=== PATIENT | female | born 1980 ===

== ENCOUNTER 2020-12-03 11:45 | Outpatient (REF) | payer SELFPAY ==
--- NOTE | ~2020-12-03 | XR_ITS ---
EXAMINATION: XR HAND, LEFT CLINICAL INFORMATION: Fall COMPARISON: None TECHNIQUE: PA, lateral, and oblique views of the left hand. FINDINGS: The bones and soft tissues are normal. No fracture. Alignment is anatomic. Joint spaces are maintained. No erosions or soft tissue calcifications. XR/XR hand wrist LT IMPRESSION: Normal left hand.
--- NOTE | ~2020-12-03 | XR_ITS ---
EXAMINATION: XR ELBOW, LEFT CLINICAL INFORMATION: Fall COMPARISON: None TECHNIQUE: AP, lateral, and oblique views of the left elbow. FINDINGS: The bones and soft tissues are normal. No fracture or joint effusion. Alignment is anatomic. Joint spaces are maintained. XR/XR elbow LT min 3V IMPRESSION: Normal left elbow.
== END 2020-12-03 11:46 | disposition home or self-care (01) ==
LOC: HO.HMGCX 11:45
PROVIDERS: PCP Internal Medicine; Visit Provider Physician Assistant Medical
DX: Z91.81 History of falling (principal)
CPT/HCPCS: 73080; 73110; 73130

== ENCOUNTER 2020-12-20 18:30 | Outpatient (REF) | payer BC, SELFPAY ==
--- NOTE | ~2020-12-20 | MR_ITS ---
EXAMINATION: MRI WRIST WITHOUT CONTRAST, LEFT CLINICAL INFORMATION: Left wrist/forearm pain following a fall on 12/02/2020. COMPARISON: Left hand and wrist radiographs dated 12/03/2020. TECHNIQUE: Multisequence MR imaging of the left wrist was performed without contrast on a high-field strength scanner. FINDINGS: TRIANGULAR FIBROCARTILAGE: Intact. INTRINSIC LIGAMENTS: Intact. TENDONS/MEDIAN NERVE: Trace fluid within the extensor carpi radialis longus and extensor carpi radialis brevis tendon sheaths as well as within the abductor pollicis longus and extensor pollicis brevis tendon sheaths. Findings are consistent with minimal tenosynovitis. No transverse tendon defect. ARTICULAR CARTILAGE/BONE: Diffuse articular cartilage signal heterogeneity with areas of full-thickness loss and mild underlying subchondral cystic change at the triscaphe and 1st carpometacarpal joints. Small marginal osteophytes. JOINT FLUID/SOFT TISSUES: Small pisotriquetral joint effusion. MR/MR wrist LT wo con IMPRESSION: 1. Minimal tenosynovitis of the extensor carpi radialis longus, extensor carpi radialis brevis, abductor pollicis longus, and extensor pollicis brevis tendons. No transverse tendon defect. 2. 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 Small pisotriquetral joint effusion. 3. No triangular fibrocartilage complex or intrinsic ligament tear.
== END 2020-12-20 18:31 | disposition home or self-care (01) ==
LOC: HO.MRI 18:30
PROVIDERS: PCP Internal Medicine; Visit Provider Internal Medicine
DX: S69.92XA Unspecified injury of left wrist, hand and finger(s), initial encounter (principal); X58.XXXA Exposure to other specified factors, initial encounter; Y93.9 Activity, unspecified; Y92.9 Unspecified place or not applicable; Y99.9 Unspecified external cause status
CPT/HCPCS: 73221

== ENCOUNTER 2022-01-18 12:18 | Outpatient (REF) | payer OTHER, SELFPAY ==
[2022-01-18 12:56] LABS: Hematocrit 34.8 % (37.0-47.0); Hemoglobin 11.3 g/dl (12.0-16.0); Mean Corpuscular HGB Conc 32.5 g/dl (31.0-35.0); Mean Corpuscular Hemoglobin 26.6 pg (27.0-33.0); Mean Corpuscular Volume 81.9 fL (80.0-98.0); Mean Platelet Volume 9.5 fL (9.4-12.3); Platelet Count 472 X10*3/uL (160-400); Red Blood Count 4.25 X10*6/uL (4.20-5.50); Red Cell Distribution Width 16.5 % (11.0-16.0); White Blood Count 12.9 X10*3/uL (4.8-10.8)
[2022-01-18 13:46] LABS: Alanine Aminotransferase 21 U/L (0-31); Albumin Level 4.4 g/dL (3.5-5.0); Alkaline Phosphatase 96 U/L (39-117); Anion Gap 16 (12-20); Aspartate Amino Transferase 20 U/L (5-31); Blood Urea Nitrogen 10 mg/dL (9-16); Calcium 9.4 mg/dL (8.4-10.2); Carbon Dioxide 26 mmol/L (22-29); Chloride 101 mmol/L (96-108); Cholesterol 183 mg/dL; Estimated Glomerular Filt Rate > 60; Glucose Fasting 96 mg/dL (60-99); HDL Cholesterol 59 mg/dL; LDL Cholesterol Calculated 96 mg/dl; Potassium 4.7 mmol/L (3.3-5.1); Sodium 138 mmol/L (135-145); Total Protein 7.2 g/dL (6.5-8.0); Triglycerides 141 mg/dL
[2022-01-18 13:52] LABS: Appearance Urine Turbid; Color Urine Yellow; Glucose Urine UA Negative (Negative); Leukocyte Esterase Urine Large (3+) (Negative); Nitrite Urine Negative (Negative); PH 5.5 (5.0-8.0); Specific Gravity - Urine 1.025 (1.005-1.025); Urine Blood Small (1+) (Negative); Urine Ketones Trace mg/dL (Negative); Urine Protein 100 (2+) mg/dL (Neg-Trace)
[2022-01-18 14:02] LABS: Bilirubin Total < 0.2 mg/dL (0.0-1.0)
[2022-01-18 14:17] LABS: Bacteria Urine 4+ (None Seen); Squamous Epithelial Cell Urine >20 /HPF (0-2); UACC Culture Trigger YES; WBC Urine >50 /HPF (0-5)
== END 2022-01-18 12:19 | disposition home or self-care (01) ==
LOC: HO.LAB 12:18
PROVIDERS: PCP Internal Medicine; Visit Provider Internal Medicine
DX: Z00.00 Encounter for general adult medical examination without abnormal findings (principal)
CPT/HCPCS: 36415; 80053; 80061; 81001; 85027

== ENCOUNTER 2022-01-24 12:47 | Outpatient (REF) | payer OTHER, SELFPAY ==
[2022-01-24 13:38] LABS: Appearance Urine Cloudy; Color Urine Yellow; Glucose Urine UA Negative (Negative); Leukocyte Esterase Urine Moderate (2+) (Negative); Nitrite Urine Negative (Negative); PH 5.5 (5.0-8.0); Specific Gravity - Urine >= 1.030 (1.005-1.025); Urine Blood Negative (Negative); Urine Ketones Negative (Negative); Urine Protein 100 (2+) mg/dL (Neg-Trace)
[2022-01-24 14:08] LABS: Iron 41 mcg/dL (30-160); Percent Iron Saturation 9 % (15-50); Total Iron Binding Capacity 475 mcg/dL (228-428); Unsaturated Iron Binding 434 ug/dL
[2022-01-24 14:09] LABS: UACC Culture Trigger YES
[2022-01-24 14:11] LABS: Bacteria Urine None Seen (None Seen)
[2022-01-24 14:42] LABS: Folate 7.4 ng/mL (> or = 4.0); Vitamin B12 314 pg/mL (200-900)
== END 2022-01-24 12:48 | disposition home or self-care (01) ==
LOC: HO.LAB 12:47
PROVIDERS: PCP Internal Medicine; Visit Provider Internal Medicine
DX: R82.71 Bacteriuria (principal); D64.9 Anemia, unspecified
CPT/HCPCS: 36415; 81001; 82607; 82746; 83540

== ENCOUNTER 2022-01-29 08:08 | Outpatient (REF) | payer OTHER, SELFPAY ==
[2022-01-29 12:10] LABS: Total Volume 24 Hour Urine 1450 mL
[2022-01-29 12:12] LABS: Creatinine, 24Hr Urine 1.2 G/Day (1.0-2.0); Creatinine, mg/dL 84.15; Protein 24 Hr Urine 203 mg/Day (<150); Protein mg/dL 14 mg/dL
[2022-01-31 20:32] LABS: Urea, 24 Hr Urine 11 g/24 h (6-17)
== END 2022-01-29 08:09 | disposition home or self-care (01) ==
LOC: HO.HMGCLDS 08:08
PROVIDERS: PCP Internal Medicine; Visit Provider Internal Medicine
DX: R80.9 Proteinuria, unspecified (principal)
CPT/HCPCS: 84156; 84540

== ENCOUNTER 2022-03-15 15:27 | Outpatient (REF) | payer OTHER, SELFPAY ==
--- NOTE | ~2022-03-15 | US_ITS ---
EXAMINATION: US THYROID CLINICAL INFORMATION: Nontoxic goiter, unspecified. COMPARISON: None TECHNIQUE: Linear transducer sanchez-scale and color Doppler examination with attention to the region of the thyroid. FINDINGS: SIZE: Measurements of the thyroid lobes and nodules are given in sagittal, anteroposterior and transverse dimensions respectively. Right Thyroid Lobe: 4.8 x 1.5 x 1.4 cm, volume 5.1 mL. Parenchyma: The gland echotexture is homogeneous. Thyroid vascularity is normal. Left Thyroid Lobe: 3.8 x 1.3 x 1.5 cm, volume 3.7 mL. Parenchyma: The gland echotexture is homogeneous. Thyroid vascularity is increased. Isthmus: 0.2 cm in maximum AP dimension. Estimated total number of nodules greater than or equal to 1 cm: 0. Business Data Analyst nodules are described as follows: 1. Location: Left medial inferior. Size: 0.4 x 0.2 x 0.3 cm, volume 0.01 mL. Nodule characteristics: Composition: Solid (2). Echogenicity: Hypoechoic (2). Shape: Not taller than wide (0). Margins: Smooth (0). Echogenic Foci: None (0). ACR TI-RADS total points: 4 ACR TI-RADS category: 4 NODES: No lymphadenopathy is seen in the tissue surrounding the thyroid gland. US/US thyroid IMPRESSION: Solitary subcentimeter nonsuspicious nodule lower pole left thyroid lobe. The left lobe is slightly hypervascular. Unremarkable right thyroid lobe. Routine annual followup can be performed. ACR TI-RADS RECOMMENDATION REFERENCE: Ultrasound-guided fine-needle aspiration, followup ultrasound, no further follow up. * TR1 (0 point) and TR 2 (2 points): No FNA or follow up. * TR3 (3 points): FNA if more than or equal to 2.5 cm in maximum dimension, followup ultrasound in 1, 3 and 5 years if 1.5 to 2.4 cm in maximum dimension. * TR4 (4-6 points): FNA if more than or equal to 1.5 cm in maximum dimension, followup ultrasound in 1, 2, 3 and 5 years if 1 to 1.4 cm in maximum dimension. * TR5 (more than or equal to 7 points): FNA if more than or equal to 1 cm in maximum dimension, followup ultrasound every year for 5 years if 0.5 to 0.9 cm in maximum dimension. * TR3, TR4 or TR5 nodules that are below the size threshold for followup receive no follow up.
== END 2022-03-15 15:28 | disposition home or self-care (01) ==
LOC: HO.US 15:27
PROVIDERS: Visit Provider Internal Medicine
DX: E04.9 Nontoxic goiter, unspecified (principal)
CPT/HCPCS: 76536

== ENCOUNTER 2022-10-16 12:48 | Outpatient (REF) | payer OTHER, SELFPAY ==
[2022-10-16 13:10] LABS: MANUAL DIFF FLAG NO
[2022-10-16 14:22] LABS: Appearance Urine Cloudy; Color Urine Yellow; Glucose Urine UA Negative (Negative); Leukocyte Esterase Urine Trace (Negative); Nitrite Urine Negative (Negative); PH 6.5 (5.0-9.0); Specific Gravity - Urine 1.025 (1.005-1.025); UMIC TRIGGER UA YES; Urine Blood Negative (Negative); Urine Ketones Negative (Negative); Urine Protein Trace mg/dL (Neg-Trace)
[2022-10-16 14:25] LABS: Bacteria Urine None Seen (None Seen); Hyaline Casts Urine 0-2 /LPF (0-2); RBC Urine 0-2 /HPF (0-2); WBC Urine 0-5 /HPF (0-5)
[2022-10-16 14:30] LABS: Basophils Absolute Auto 0.1 X10*3/uL (0.0-0.2); Basophils Percent Auto 0.9 % (0-2); Eosinophils Absolute Auto 0.6 X10*3/uL (0.0-0.4); Eosinophils Percent Auto 5.1 % (0-4); Hematocrit 37.4 % (37.0-47.0); Hemoglobin 12.3 g/dl (12.0-16.0); Imm Gran Abs Auto 0.03 X10*3/uL (0.00-0.03); Imm Gran Pct Auto 0.3 % (0.0-0.4); Lymphocytes Absolute Auto 3.5 X10*3/uL (1.2-4.9); Lymphocytes Percent Auto 31.7 % (20-40); Mean Corpuscular HGB Conc 32.9 g/dl (31.0-35.0); Mean Corpuscular Hemoglobin 28.5 pg (27.0-33.0); Mean Corpuscular Volume 86.8 fL (80.0-98.0); Mean Platelet Volume 10.1 fL (9.4-12.3); Monocytes Absolute Auto 0.7 X10*3/uL (0.1-1.2); Monocytes Percent Auto 6.2 % (2-11); Neutrophils Absolute Auto 6.2 x10*3/uL (2.0-8.3); Neutrophils Percent Auto 55.8 % (45-73); Platelet Count 439 X10*3/uL (160-400); Red Blood Count 4.31 X10*6/uL (4.20-5.50); Red Cell Distribution Width 13.6 % (11.0-16.0); White Blood Count 11.1 X10*3/uL (4.8-10.8)
[2022-10-16 16:36] LABS: Anion Gap 16 (12-20)
[2022-10-16 17:11] LABS: Blood Urea Nitrogen 16 mg/dL (9-16); Calcium 9.5 mg/dL (8.4-10.2); Carbon Dioxide 25 mmol/L (22-29); Chloride 101 mmol/L (96-108); Estimated Glomerular Filt Rate > 60; Iron 61 mcg/dL (30-160); Percent Iron Saturation 20 % (15-50); Potassium 4.6 mmol/L (3.3-5.1); Sodium 137 mmol/L (135-145); Total Iron Binding Capacity 311 mcg/dL (228-428); Unsaturated Iron Binding 250 ug/dL
[2022-10-16 17:13] LABS: Creatinine Urine 94.18 mg/dL; Protein/Creatinine Ratio, Ur 0.19 (<0.2); Total Protein Urine Random 18 mg/dL (<12)
[2022-10-16 17:23] LABS: Ferritin 21 ng/mL (10-250)
== END 2022-10-16 12:49 | disposition home or self-care (01) ==
LOC: HO.LAB 12:48
PROVIDERS: PCP Internal Medicine; Visit Provider Internal Medicine Nephrology
DX: R80.1 Persistent proteinuria, unspecified (principal)
CPT/HCPCS: 36415; 80051; 81001; 82043; 82310; 82565; 82728; 83540; 84156; 84520; 85025

== ENCOUNTER 2023-03-13 16:18 | Outpatient (REF) | payer OTHER, SELFPAY ==
--- NOTE | ~2023-03-13 | US_ITS ---
EXAMINATION: US THYROID CLINICAL INFORMATION: Nontoxic single thyroid nodule. 1-year follow up. COMPARISON: Thyroid ultrasound 03/15/2022. TECHNIQUE: Linear transducer grayscale and color Doppler examination with attention to the region of the thyroid. FINDINGS: SIZE: Measurements of the thyroid lobes and nodules are given in sagittal, anteroposterior and transverse dimensions respectively. Right Thyroid Lobe: 3.8 x 1.4 x 1.1 cm, volume 3.2 mL. Previously 4.8 x 1.5 x 1.4 cm, volume 5.1 mL. Parenchyma: The gland echotexture is homogeneous. Thyroid vascularity is normal. Left Thyroid Lobe: 3.9 x 1.3 x 0.8 cm, volume 2.2 mL. Previously 3.8 x 1.3 x 1.5 cm, volume 3.7 mL. Parenchyma: The gland echotexture is homogeneous. Thyroid vascularity is normal. Isthmus: 0.2 cm in maximum AP dimension. Previously 0.2 cm. Estimated total number of nodules greater than or equal to 1 cm: 0. Process Planner nodules are described as follows: 1. Location: Left lower pole. Size: 0.4 x 0.3 x 0.3 cm, volume 0.02 mL. Previously: 0.4 x 0.2 x 0.3 cm, volume 0.01 mL. Nodule characteristics: Composition: Solid (2). Echogenicity: Hypoechoic (2). Shape: Not taller than wide (0). Margins: Smooth (0). Echogenic Foci: None (0). ACR TI-RADS total points: 4 Previous: 4 ACR TI-RADS category: 4 Previous: 4 Significant change in size (>/= 20% in 2 dimensions and minimal increase of 2 mm or 50% or greater increase in volume): No Change in features: No Change in ACR TI-RADS risk category: No NODES: No lymphadenopathy is seen in the tissue surrounding the thyroid gland. US/US thyroid IMPRESSION: 0.4 cm TI-RADS category 4 thyroid nodule, not significant changed compared with 1 year prior. No further dedicated follow up imaging of this nodule is indicated, per ACR recommendation. ACR TI-RADS RECOMMENDATION REFERENCE: Ultrasound-guided fine-needle aspiration, follow up ultrasound, no further followup. * TR1 (0 point) and TR2 (2 points): No FNA or followup * TR3 (3 points): FNA if more than or equal to 2.5 cm in maximum dimension, follow up ultrasound in 1, 3 and 5 years if 1.5 to 2.4 cm in maximum dimension. * TR4 (4-6 points): FNA if more than or equal to 1.5 cm in maximum dimension, follow up ultrasound in 1, 2, 3 and 5 years if 1 to 1.4 cm in maximum dimension. * TR5 (more than or equal to 7 points): FNA if more than or equal to 1 cm in maximum dimension, follow up ultrasound every year for 5 years if 0.5 to 0.9 cm in maximum dimension. * TR3, TR4 or TR5 nodules that are below the size threshold for follow up receive no followup.
== END 2023-03-13 16:19 | disposition home or self-care (01) ==
LOC: HO.US 16:18
PROVIDERS: PCP Internal Medicine; Visit Provider Internal Medicine
DX: E04.1 Nontoxic single thyroid nodule (principal)
CPT/HCPCS: 76536

== ENCOUNTER 2023-05-15 09:46 | Outpatient (AMB) | payer OTHER, SELFPAY ==
[2023-05-15 09:50] VITALS: BP 124/80; PULSE 83; O2SAT 97; BMI 34.2
--- NOTE | 2023-05-15 09:50 | MHC.PC.OV ---
Vital Signs 05/15/23 09:50 Height 5 ft 4 in Weight 199 lb BMI 34.2 BP 124/80 Blood Pressure Location Lt brachial Position Sitting Pulse 83 Pulse Source Pulse Oximeter Pulse Oximetry (%) 97 Oxygen Delivery Method Room Air Intake Visit Reasons: Rash on neck and chest Intake Note: Pt is here today for a sick visit. Pt c/o rash on her chest and neck L side for a week now. Pt states that the rash get very itchy at times and santos. Allergies No Known Allergies Allergy (Verified 05/15/23 09:52) Medication List - Last Reconciled 05/15/23 by Katerin Preston MD ibuprofen 800 mg PO Q8H PRN oxcarbazepine 600 mg PO BID oxcarbazepine 150 mg PO BID triamcinolone acetonide 0.1% 1 appl topical DAILY Tobacco use date assessed: 05/15/23 Dental Screening Dental Screen Date: 05/15/23 Did you have a dental visit in the last 12 months?: Yes Did you have a dental problem in the last 6 months where you did not have access to dental care?: No Was dental information given to patient?: Patient has dentist HPI Rash on neck and chest HPI Details Patient complains of itchy rash on her upper chest and both upper shoulders for 1 month. She denies exposure to new laundry detergents or cosmetics. She usually takes hot showers in a cold weather and does not use a skin moisturizer. Patient took a course of prednisone prescribed by urgent care and pruritus improved but the rash did not. [facility] Medical History Annual physical exam Hx of gallstones Left wrist injury Surgical History H/O breast augmentation H/O tubal ligation Family History (Updated 05/15/23 @ 09:55 by Gisselle Aguilar [facility]) Mother Diabetes Social History Housing: House Alcohol intake: never Patient Tobacco Use Status: Never used Tobacco e-Cigarette/Vaping Use: Never Used Second Hand Smoke Exposure: No service: No Current occupational status: employed Cognitive needs: No Hearing needs: No Vision needs: No Questionnaire Thrive Questionnaire Date Thrive assessed: 01/26/22 AUDIT C Alcohol Use Questionnaire (AUDIT-C) 1. How often do you have a drink containing alcohol?: Monthly or less 2. How many drinks containing alcohol do you have on a typical day when you are drinking?: 1 or 2 3. How often do you have six or more drinks on one occasion?: Never Total Score: 1 KAITLYN-7 AMB Questionnaire KAITLYN-7 Date KAITLYN - 7 assessed: 01/26/22 Source: Developed by Drs. Jeanmarie Jimenez, Mary Jo Loza, Cj Fragoso and colleagues, with an educational horacio from [employer]. Review of Systems Const All systems reviewed & are unremarkable except as noted in HPI and below Reports no additional complaints Eyes Reports no additional complaints ENT Reports no additional complaints Card Reports no additional complaints Resp Reports no additional complaints GI Reports no additional complaints Reports no additional complaints Physical exam (Primary Care) Vital Signs: Last Vital Signs Pulse 83 05/15/23 09:50 BP 124/80 05/15/23 09:50 Pulse Ox 97 05/15/23 09:50 Oxygen Delivery Method Room Air 05/15/23 09:50 BMI result Body Mass Index 34.2 Tobacco/Smoking Status: Tobacco use Status Tobacco use date assessed 05/15/23 05/15/23 09:55 Patient Tobacco Use Status Never used Tobacco 05/15/23 09:55 e-Cigarette/Vaping Use Never Used 05/15/23 09:55 Thrive Assessment: Date of Thrive Assessment Date Thrive assessed 01/26/22 05/15/23 09:55 Const General: no acute distress HENMT Throat: Yes posterior oropharynx normal Neck Neck: Yes supple Resp Effort & Inspection: normal respiratory effort Auscultation: clear to auscultation bilaterally Cardio Rhythm: regular rhythm Heart sounds: S1 normal heart sound present and S2 normal heart sound present GI Inspection: Yes normal to inspection Skin Other: Erythematous papular rash on the upper chest and both shoulders Assessment and Plan Assessment & Plan (1) Annual physical exam: Code(s): Z00.00 - Encounter for general adult medical examination without abnormal findings (2) Anemia: Code(s): D64.9 - Anemia, unspecified Plan: Check CBC and iron count before physical in June (3) Rash: Code(s): R21 - Rash and other nonspecific skin eruption Plan: Patient was advise to switch to milder laundry detergent body soap and avoid hot water in the shower. She will use mild skin moisturizer and triamcinolone cream. if the symptoms persist she will be referred to Dermatology Orders: Orders Lipid Panel Today D64.9 - Anemia, unspecified, Z00.00 - Encounter for general adult medical examination without abnormal findings TSH reflex Free T4 Today D64.9 - Anemia, unspecified, Z00.00 - Encounter for general adult medical examination without abnormal findings Comprehensive [place]. Panel Fast Today D64.9 - Anemia, unspecified, Z00.00 - Encounter for general adult medical examination without abnormal findings Complete Blood Count Auto Diff Today D64.9 - Anemia, unspecified, Z00.00 - Encounter for general adult medical examination without abnormal findings IRON PROFILE Today D64.9 - Anemia, unspecified, Z00.00 - Encounter for general adult medical examination without abnormal findings Medications: New triamcinolone acetonide 0.1% 1 appl topical DAILY 80 grams 0RF Coding Level of Care Code Est Pt Level 3 (91693) Diagnoses Annual physical exam Z00.00 Anemia D64.9 Rash R21
== END 2023-05-15 10:34 | disposition home or self-care (01) ==
PROVIDERS: PCP Internal Medicine; Visit Provider Internal Medicine
DX: D64.9 Anemia, unspecified (principal); R21 Rash and other nonspecific skin eruption
CPT/HCPCS: 99213

== ENCOUNTER 2023-06-01 10:09 | Outpatient (REF) | payer OTHER, SELFPAY ==
[2023-06-01 11:06] LABS: MANUAL DIFF FLAG NO
[2023-06-01 11:17] LABS: Basophils Absolute Auto 0.1 X10*3/uL (0.0-0.2); Basophils Percent Auto 0.8 % (0-2); Eosinophils Absolute Auto 0.6 X10*3/uL (0.0-0.4); Eosinophils Percent Auto 4.5 % (0-4); Hematocrit 39.8 % (37.0-47.0); Hemoglobin 13.1 g/dl (12.0-16.0); Imm Gran Abs Auto 0.05 X10*3/uL (0.00-0.03); Imm Gran Pct Auto 0.4 % (0.0-0.4); Lymphocytes Absolute Auto 2.8 X10*3/uL (1.2-4.9); Lymphocytes Percent Auto 21.6 % (20-40); Mean Corpuscular HGB Conc 32.9 g/dl (31.0-35.0); Mean Corpuscular Hemoglobin 28.1 pg (27.0-33.0); Mean Corpuscular Volume 85.2 fL (80.0-98.0); Mean Platelet Volume 9.8 fL (9.4-12.3); Neutrophils Absolute Auto 8.3 x10*3/uL (2.0-8.3); Neutrophils Percent Auto 64.7 % (45-73); Platelet Count 443 X10*3/uL (160-400); Red Blood Count 4.67 X10*6/uL (4.20-5.50); White Blood Count 12.8 X10*3/uL (4.8-10.8)
[2023-06-01 11:53] LABS: Alanine Aminotransferase 22 U/L (0-31); Albumin Level 4.4 g/dL (3.5-5.0); Alkaline Phosphatase 91 U/L (39-117); Anion Gap 14 (12-20); Aspartate Amino Transferase 23 U/L (5-31); Bilirubin Total 0.2 mg/dL (0.0-1.0); Blood Urea Nitrogen 10 mg/dL (9-16); Calcium 9.3 mg/dL (8.4-10.2); Carbon Dioxide 25 mmol/L (22-29); Chloride 102 mmol/L (96-108); Cholesterol 192 mg/dL (<200); Estimated Glomerular Filt Rate > 60; Glucose Fasting 95 mg/dL (60-99); HDL Cholesterol 57 mg/dL (>40); Iron 83 mcg/dL (30-160); LDL Cholesterol Calculated 111 mg/dL (<100); Percent Iron Saturation 26 % (15-50); Potassium 3.8 mmol/L (3.3-5.1); Sodium 137 mmol/L (135-145); Total Iron Binding Capacity 321 mcg/dL (228-428); Total Protein 7.4 g/dL (6.5-8.0); Triglycerides 120 mg/dL (<150); Unsaturated Iron Binding 238 ug/dL
[2023-06-01 12:11] LABS: TSH reflex Free T4 3.41 uIU/mL (0.32-4.0)
== END 2023-06-01 10:10 | disposition home or self-care (01) ==
LOC: HO.HMGCLDS 10:09
PROVIDERS: PCP Internal Medicine; Visit Provider Internal Medicine
DX: Z00.00 Encounter for general adult medical examination without abnormal findings (principal); D64.9 Anemia, unspecified
CPT/HCPCS: 36415; 80053; 80061; 83540; 84443; 85025

== ENCOUNTER 2023-06-05 11:39 | Outpatient (AMB) | payer OTHER, SELFPAY ==
--- NOTE | 2023-06-05 11:51 | MHC.PC.OV ---
Vital Signs 06/05/23 11:52 Height 5 ft 4 in Weight 196 lb BMI 33.6 BP 120/78 Blood Pressure Location Lt brachial Position Sitting Pulse 84 Pulse Source Pulse Oximeter Pulse Oximetry (%) 99 Oxygen Delivery Method Room Air Intake Visit Reasons: PE Intake Note: Pt is here today for PE. 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 Allergies No Known Allergies Allergy (Verified 06/05/23 11:54) Medication List - Last Reconciled 06/05/23 by Katerin Preston MD ibuprofen 800 mg PO Q8H PRN oxcarbazepine 600 mg PO BID oxcarbazepine 150 mg PO BID triamcinolone acetonide 0.1% 1 appl topical DAILY Tobacco use date assessed: 06/05/23 Dental Screening Dental Screen Date: 06/05/23 Did you have a dental visit in the last 12 months?: Yes Did you have a dental problem in the last 6 months where you did not have access to dental care?: No Was dental information given to patient?: Patient has dentist HPI PE HPI Details Patient presents for a physical [facility] Medical History Annual physical exam Left wrist injury Hx of gallstones Surgical History H/O breast augmentation H/O tubal ligation Family History Mother Diabetes Social History Housing: House Alcohol intake: never Patient Tobacco Use Status: Never used Tobacco e-Cigarette/Vaping Use: Never Used Second Hand Smoke Exposure: No service: No Current occupational status: employed Cognitive needs: No Hearing needs: No Vision needs: No Questionnaire PHQ-9 Over the last 2 weeks, how often have you been bothered by any of the following problems? 1. Little interest or pleasure in doing things: not at all 2. Feeling down, depressed, or hopeless: not at all 3. Trouble falling or staying asleep, or sleeping too much: not at all 4. Feeling tired or having little energy: more than half the days 5. Poor appetite or overeating: more than half the days 6. Feeling bad about yourself - or that you are a failure or have let yourself or your family down: not at all 7. Trouble concentrating on things, such as reading the newspaper or watching television: not at all 8. Moving or speaking so slowly that other people could have noticed. Or the opposite - being so fidgety or restless that you have been moving around a lot more than usual: not at all 9. Thoughts that you would be better off or of hurting yourself in some way: not at all Total score: 4 Depression Screening Interpretation: Negative Depression Screening Done: Yes Source: Developed by Drs. Jeanmarie Jimenez, Mary Jo Loza, Cj Fragoso and colleagues, with an educational horacio from [employer]. Thrive Questionnaire Date Thrive assessed: 06/05/23 I am a: Patient What is your living situation today?: I have a steady place to live Within the past 12 months, did the food you bought not last and you didn't have the money to get more?: Never true Within the past 12 months, did you worry whether your food would run out before you got money to buy more?: Never true Do you have trouble paying for medicines?: No Do you have trouble getting transportation to medical appointments?: No Do you have trouble paying your heating and electricity bill?: No Do you have trouble taking care of your child, family member or friend?: No Do you have trouble with day-to-day activities such as bathing, preparing meals, shopping, managing finances, etc.?: No Are you currently unemployed and looking for a job?: No Are you interested in more education?: No Please select the resources that you would like help with: None KAITLYN-7 AMB Questionnaire KAITLYN-7 Date KAITLYN - 7 assessed: 06/05/23 Feeling nervous, anxious, or on edge: 0 = Not at all Not being able to stop or control worryin = Not at all Worrying too much about different things: 0 = Not at all Trouble relaxin = More than half the days Being so restless that it is hard to sit still: 0 = Not at all Becoming easily annoyed or irritable: 0 = Not at all Feeling afraid as if something awful might happen: 0 = Not at all Total KAITLYN-7 score (0-4 normal; 5-9 mild; 10-14 moderate; 15-21 severe): 2 Source: Developed by Drs. Jeanmarie Jimenez, Mary Jo Loza, Cj Fragoso and colleagues, with an educational horacio from [employer]. Review of Systems Const All systems reviewed & are unremarkable except as noted in HPI and below Reports no additional complaints Eyes Reports no additional complaints ENT Reports no additional complaints Card Reports no additional complaints Resp Reports no additional complaints GI Reports no additional complaints Reports no additional complaints Physical exam (Primary Care) Vital Signs: Last Vital Signs Pulse 84 06/05/23 11:52 BP 120/78 06/05/23 11:52 Pulse Ox 99 06/05/23 11:52 Oxygen Delivery Method Room Air 06/05/23 11:52 BMI result Body Mass Index 33.6 Tobacco/Smoking Status: Tobacco use Status Tobacco use date assessed 06/05/23 06/05/23 11:56 Patient Tobacco Use Status Never used Tobacco 06/05/23 11:56 e-Cigarette/Vaping Use Never Used 06/05/23 11:56 PHQ-9: PHQ-9 Score PHQ-9: Total score 4 06/05/23 13:04 Depression Screening Interpretation: Negative Thrive Assessment: Date of Thrive Assessment Date Thrive assessed 06/05/23 06/05/23 13:04 Const General: no acute distress HENMT Head: Yes normal to inspection Ears: hearing grossly normal bilaterally Face and sinus: Yes normal facial exam Mouth: Normal oral and palatal mucosa present Eyes General: appearance normal, both eyes and all related structures Neck Neck: Yes no lymphadenopathy and Yes supple Chest Breast/axilla inspection: normal inspection of the breasts Breast/axilla palpation: normal palpation of the breasts and normal palpation of the axillae Resp Effort & Inspection: normal respiratory effort Auscultation: clear to auscultation bilaterally Cardio Rhythm: regular rhythm Heart sounds: S1 normal heart sound present and S2 normal heart sound present GI Inspection: Yes normal to inspection Palpation (GI): Soft to palpation Percussion: Yes normal to percussion Auscultation: normal bowel sounds External Female Exam: normal external appearance Speculum Exam - Vagina: normal appearance of the vagina Speculum Exam - Cervix: normal appearance of the cervix Bimanual exam- vagina & uterus: normal bimanual exam Assessment and Plan Assessment & Plan (1) Normal pelvic 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 She will be referred to GI for colonoscopy and patient declined mammogram Orders: Orders Pap Smear Today Z01.419 - Encounter for gynecological examination (general) (routine) without abnormal findings Referrals Gastroenterology Referral Z00.00 - Encounter for general adult medical examination without abnormal findings Medications: New fluconazole 150 mg PO Q3D 2 tabs 0RF Coding Level of Care Code Est Pt Prev Care 40-64y(47169) Diagnoses Normal pelvic exam Z01.419 Annual physical exam Z00.00
[2023-06-05 11:52] VITALS: BP 120/78; PULSE 84; O2SAT 99; BMI 33.6
== END 2023-06-05 15:35 | disposition home or self-care (01) ==
PROVIDERS: PCP Internal Medicine; Visit Provider Internal Medicine
DX: Z01.419 Encounter for gynecological examination (general) (routine) without abnormal findings (principal); Z00.00 Encounter for general adult medical examination without abnormal findings
CPT/HCPCS: 99396

== ENCOUNTER 2023-06-05 15:35 | Outpatient (REF) | payer OTHER, SELFPAY ==
[2023-06-10 23:54] LABS: HPV mRNA E6/E7 rflx Not Detected (Not Detected)
== END 2023-06-05 15:36 | disposition home or self-care (01) ==
LOC: HO.LNP 15:35
PROVIDERS: Visit Provider Internal Medicine
DX: Z01.419 Encounter for gynecological examination (general) (routine) without abnormal findings (principal); Z11.51 Encounter for screening for human papillomavirus (HPV)
CPT/HCPCS: 87624; 88142

== ENCOUNTER 2023-07-08 13:51 | Outpatient (AMB) | payer OTHER, SELFPAY ==
--- NOTE | 2023-07-08 13:55 | A.OFFVIS_ITS ---
Intake Vital Signs 07/08/23 13:56 Height 5 ft 4 in Weight 195 lb 12.328 oz BMI 33.6 BP 135/62 Blood Pressure Location Lt brachial Position Sitting Pulse 91 Pulse Source Pulse Oximeter Intake Visit Reasons: colonoscopy screening Intake Note: Pt presents to the office today for a colonoscopy screening. Pt states she is feeling well and denies any GI concerns at this time. Allergies No Known Allergies Allergy (Verified 07/08/23 13:57) HPI colonoscopy screening HPI Details 42 year old? female here today for pre c olonoscopy screening.? Patient was sent to us by her PCP.? Patient reports that she had diagnostic colonoscopy over 5 years ago for bilateral lower abdominal discomfort. Patient reports that that was a normal colonoscopy.? Patient denies any gastrointestinal symptoms in the past or at present.? Denies any personal or family history of gastrointestinal disease, colon polyps, or cancer.? Denies history of difficulty with sedation or anesthesia in the past.? Negative for history of sleep apnea.? Denies any history of cardiac, renal, pulmonary, or hepatic disease.?? No history of infectious? diseases like hepatitis A, B, C, HIV or tuberculosis.? Patient is not on any anticoagulation therapy. [facility] Medical History Annual physical exam Left wrist injury Hx of gallstones Surgical History (Updated 07/08/23 @ 14:24 by Fina Payne, [facility]) History of cholecystectomy H/O breast augmentation H/O tubal ligation Family History Mother Diabetes Social History Housing: House Alcohol intake: never Patient Tobacco Use Status: Never used Tobacco e-Cigarette/Vaping Use: Never Used Second Hand Smoke Exposure: No service: No Current occupational status: employed Cognitive needs: No Hearing needs: No Vision needs: No Review of Systems Const Denies weight gain and Denies weight loss ENT Reports no additional complaints, Denies dysphagia and Denies odynophagia Card Reports no additional complaints Resp Reports no additional complaints GI Denies abdominal pain, Denies belching, Denies melena, Denies bloating, Denies change in bowel habits, Denies dysphagia, Denies excessive flatus, Denies dyspepsia, Denies heartburn, Denies diarrhea, Denies loose stools, Denies nausea, Denies odynophagia and Denies vomiting Reports no additional complaints Musc Reports no additional complaints Neuro Reports no additional complaints Psych Reports no additional complaints Endo Reports no additional complaints Physical Exam Vital Signs: Last Vital Signs Pulse 91 07/08/23 13:56 BP 135/62 07/08/23 13:56 BMI result Body Mass Index 33.6 Const General: healthy appearing, no acute distress and well developed Nutritional Appearance: well nourished Orientation/consciousness: patient oriented x3 Resp Effort & Inspection: normal respiratory effort, able to speak in complete sentences, no tracheal deviation and symmetric chest movement Auscultation: clear to auscultation bilaterally Cardio Rate: regular rate GI Inspection: Yes normal to inspection and No distended Palpation (GI): Soft to palpation, not firm, nontender and No hepatosplenomegaly present Auscultation: normal bowel sounds General: Yes no CVA tenderness Back/Spine/Pelvis Back: no CVA tenderness Skin General skin exam: elasticity normal, turgor normal and dry skin Neuro General: patient oriented x3 Psych Appearance: grossly normal Mental Status: mental status grossly normal Assessment & Plan Assessment & Plan (1) Screen for colon cancer: Code(s): Z12.11 - Encounter for screening for malignant neoplasm of colon Plan Patient denies any GI, cardiac or respiratory symptoms.? Denies any issues with anesthesia in the past.? Denies any history of sleep apnea.? No history infectious diseases in the past or present.? Not on any anticoagulation therapy.? No family or personal history of colon cancer or polyps.? Patient denies melena, hematochezia, unintentional weight loss or ribbon like stools.? Discussed at length the pre-procedure,? prep, diet & medications as well as what to expect prior, during and after the procedure.?? Stressed the importance of good bowel prep. ?Recommended the use of Vaseline or Calmoseptine OTC & baby wipes with bowel movements to promote comfort.? ?Patient verbalizes understanding and agrees to plan of care.? She was given the opportunity to ask questions and all questions answered.? We will see her after the procedure.? Medications: New polyethylene glycol 3350 (Miralax) As directed by gastroenterology department at [facility] 238 grams PO ONCE 238 grams 0RF Z12.11 - Encounter for screening for malignant neoplasm of colon bisacodyl (Dulcolax (bisacodyl)) take 4 tabs at noon the day before your colonoscopy 20 mg (4 x 5 mg) PO ONCE 1 day 4 tabs 0RF Z12.11 - Encounter for screening for malignant neoplasm of colon Coding Level of Care Code New Pt Level 3 (68781) Diagnoses Screen for colon cancer Z12.11 Time Spent (min) 40 Comment 30 minutes spent with patient and additional 10 minutes spent reviewing her records
[2023-07-08 13:56] VITALS: BP 135/62; PULSE 91; BMI 33.6
== END 2023-07-08 14:54 | disposition home or self-care (01) ==
PROVIDERS: PCP Internal Medicine; Visit Provider Nurse Practitioner Family
DX: Z12.11 Encounter for screening for malignant neoplasm of colon (principal); Z01.818 Encounter for other preprocedural examination
CPT/HCPCS: 99203

== ENCOUNTER → 2023-07-08 13:51 | Outpatient (BNVA) | payer OTHER, SELFPAY | PROVIDERS: PCP Internal Medicine; Visit Provider Nurse Practitioner Family ==

== ENCOUNTER 2023-11-29 11:16 | Day surgery (SDC) | payer OTHER, SELFPAY ==
[2023-11-27 14:33] VITALS: BMI 33.5
--- NOTE | 2023-11-28 12:14 | HO.ANESPROP2 ---
Documented by User: Modesta Hanley NP 11/28/23 12:14 HPI - Anesthesia Eval Consult details Narrative: 43yo F for Colonoscopy PMFSH Active Problems Active Problems: All Active Problems Rash (Acute) Thyroid nodule (Acute) Normal pelvic exam (Acute) Enlarged thyroid (Acute) Proteinuria (Acute) Anemia (Acute) Bacteriuria (Acute) Annual physical exam (Acute) Left wrist injury (Acute) Brachioradialis muscle tenderness (Acute) Fall (Acute) Pain of left lateral upper thigh (Acute) Past Medical History Medical History (Updated 11/29/23 @ 11:26 by Anamika Jones) Complex partial seizure disorder Diabetes insipidus Annual physical exam Left wrist injury Hx of gallstones Family History Family History Mother Diabetes Surgical History Surgical History (Updated 07/08/23 @ 14:24 by Fina Payne [facility]) History of cholecystectomy H/O breast augmentation H/O tubal ligation Social History Social History Housing: House Alcohol intake: never Patient Tobacco Use Status: Never used Tobacco e-Cigarette/Vaping Use: Never Used Second Hand Smoke Exposure: No Use of substances other than those prescribed or required for medical reasons: No Are you DNR?: No Advance Directives: No Advance Directives Information Provided: Yes service: No Current occupational status: employed Cognitive needs: No Hearing needs: No Vision needs: No Meds Allergies Allergy/AdvReac Type Severity Reaction Status Date / Time No Known Allergies Allergy Verified 07/08/23 13:57 Home Medications ?Medication ?Instructions ?Recorded ?Confirmed ?Last Taken ?Type oxcarbazepine 150 mg tablet 150 mg PO BID 11/12/20 06/05/23 Unknown History oxcarbazepine 600 mg tablet 600 mg PO BID 11/12/20 06/05/23 Unknown History Exam Height,Weight and Vital Signs: Height 5 ft 4 in Weight 88.451 kg Assessment and Plan Assessment Anesthesia Assessment: Chart Reviewed Documented by User: Anjali Weeks MD 11/29/23 12:34 [facility] Past Medical History Medical History (Updated 11/29/23 @ 11:26 by Anamika Jones) Complex partial seizure disorder Diabetes insipidus Annual physical exam Left wrist injury Hx of gallstones Family History Family History Mother Diabetes Family history of problems with anesthesia: No Surgical History Surgical History (Updated 07/08/23 @ 14:24 by Fina Payne [facility]) History of cholecystectomy H/O breast augmentation H/O tubal ligation History of Problems with Anesthesia: No Social History Social History Housing: House Alcohol intake: never Patient Tobacco Use Status: Never used Tobacco e-Cigarette/Vaping Use: Never Used Second Hand Smoke Exposure: No Use of substances other than those prescribed or required for medical reasons: No Are you DNR?: No Advance Directives: No Advance Directives Information Provided: Yes service: No Current occupational status: employed Cognitive needs: No Hearing needs: No Vision needs: No Meds Allergies Allergy/AdvReac Type Severity Reaction Status Date / Time No Known Allergies Allergy Verified 07/08/23 13:57 Home Medications ?Medication ?Instructions ?Recorded ?Confirmed ?Last Taken ?Type oxcarbazepine 150 mg tablet 150 mg PO BID 11/12/20 06/05/23 Unknown History oxcarbazepine 600 mg tablet 600 mg PO BID 11/12/20 06/05/23 Unknown History Exam Airway Mallampati Class: II TM Dist: >3cm Neck ROM: Full Heart: rrr Lungs: cta Assessment and Plan Assessment Anesthesia Assessment: Anesthesia Plan Discussed Final Anesthetic Review Family History of Problems with Anesthesia: No History of Problems with Anesthesia: No NPO: Yes ASA Class: II Final Preanesthetic Review: No Changes in Pt Med Stat, Meds/Allgs Chart Reviewed and Consent Obtained/Reviewed Patient Risk: Low Procedure Risk: Low Anesthetic Plan Anesthetic Plan: MAC: Disposition: Standard PACU
[2023-11-29 11:29] VITALS: BP 116/82; PULSE 84; RESP 16; TEMP 36.7; O2SAT 98
[2023-11-29 11:30] VITALS: BMI 32.5
[2023-11-29] MEDS: Lactated Ringers 1,000 ML 100 ML IVCONT (11:39)
--- NOTE | 2023-11-29 12:11 | MHC.SHP ---
Pre-Procedural Eval Section A - 24 Hr Update-Section A only Date of Service: 11/29/23 The patient is an INPATIENT: No The patient has been examined within 24 hours of the surgical procedure. The History & Physical has been completed within 30 days and I have reviewed it.: No Section B - Complete if H&P > 30 days Chief Complaint: Colon cancer screening Relevant Family History (Specify if Yes): No Relevant Social History: None Present Medications: see Short Stay Collaborative assessment Medical History: Significant History (Left wrist injury Hx of gallstones) History of Previous Operations: Relevant previous surgery/procedure and date(s) (History of cholecystectomy H/O breast augmentation H/O tubal ligation) Allergies: Allergies Allergy/AdvReac Type Severity Reaction Status Date / Time No Known Allergies Allergy Verified 07/08/23 13:57 Review of Systems Sugical H&P ROS: Negative: Constitution, Cardiovascular, Respiratory and Gastrointestinal Exam Surgical H&P Exam: Normal: Heart, Normal: Lungs, Normal: Extremities and Normal: Abdomen Plan Diagnosis/Plan: Unchanged I have reviewed the history and physical and performed a pertinent physical examination on my patient. No changes have occurred unless specified. Time Spent With Patient Time: Total time managing care of this patient today ____ minutes.
[2023-11-29 14:16] VITALS: BP 124/77; PULSE 80; RESP 16; TEMP 36.1; O2SAT 96
--- NOTE | 2023-11-29 14:18 | HO.OPN-COLON ---
Colonoscopy Operative Note Operative Note Date of Service: 11/29/23 Narrative: COLONOSCOPY TILL CECUM WITH BIOPSIES Pre-op diagnosis: Colon cancer screening Post-op diagnosis:? Colon polyps, proctitis, Diverticulosis, hemorrhoids Endoscopist:? Heri Dunham MD Anesthesia:?MAC Consent: Indications for the procedure and potential complications of bleeding, perforation, reaction to medications and missed diagnosis were discussed with the patient and informed consent was obtained. Instrument: Olympus PCF H 190 L variable stiffness pediatric colonoscope Monitoring: Vital signs and clinical assessment, intermittent blood pressure monitoring, continuous EKG monitoring, Pulse oximetry and Carbon Dioxide monitoring were done throughout the procedure. Please see anesthesia flowsheet. Colon withdrawl time was 25 minutes. Procedure: The patient was placed in the left lateral decubitis position and pre-procedure medications were administered. After a digital rectal examination of the ano-rectum, the video colonoscope was inserted into the rectum and advanced through the colon to the cecum. The colonoscope was slowly withdrawn in a retrograde panoramic fashion and the colon mucosa was carefully examined including a retroflexed view of the rectum. Findings and interventions are described below. Procedure Difficulty: without difficulty Findings: Terminal Ileum: Not evaluated Cecum: Normal Ascending Colon: Normal Transverse Colon: A 4-5 mm diminutive appearing polyp - removed with a cold snare. Residual polyp was removed with a cold biopsy Descending Colon: Normal Sigmoid Colon: Moderate diverticulosis Rectum: A 4-5 mm sessile polyp - with a cold snare Circumferential inflammation in the distal 3-4 cms of the rectum with edema, erythema and ulcerations with exudate -multiple biopsies were obtained. Ano-rectum: Moderate internal hemorrhoids Colon preparation: Good after some irrigation. [place] Bowel Preparation Scale Right colon; 2 Transverse colon: 2 Left colon; 2 (0 = Unprepared colon segment with mucosa not seen due to solid stool that cannot be cleared. 1 = Portion of mucosa of the colon segment seen, but other areas of the colon segment not well seen due to staining, residual stool and/or opaque liquid. 2 = Minor amount of residual staining, small fragments of stool and/or opaque liquid, but mucosa of colon segment seen well. 3 = Entire mucosa of colon segment seen well with no residual staining, small fragments of stool or opaque liquid) Impression and Post Procedure Diagnosis: Colonoscopy Findings: Two small polyps were removed Circumferential inflammation in the distal 3-4 cms of the rectum with edema, erythema and ulcerations with exudate - ? ulcerative proctitis versus chlamydia infection. Moderate diverticulosis seen in the sigmoid colon Moderate hemorrhoids on retroflexed exam. Plan: Pt has a FU appointment on 12/10/23 with Delisa Payne NP Repeat Colonoscopy in 5 years if polyps are adenomatous and 10 year if polyps are hyperplastic. Above findings were reviewed with the patient and relevant handouts were given and the discharge area. (Pt denied any symptoms of proctitis like rectal pain or bleeding) BIOPSIES SHOWED: A. Colon, transverse, polyp: Colonic mucosa with prominent lymphoid aggregates; negative for adenomatous dysplasia. B. Colon, rectal polyp: Hyperplastic polyp. C. Colon, rectum, biopsy: Chronic colitis/proctitis with moderate activity; negative for dysplasia (see comment). D. Colon, sigmoid, biopsy: Colonic mucosa with no specific change; no colitis, granulomas or dysplasia. Comment: (C): The differential includes chronic inflammatory bowel disease, infection and drug-related causes; clinical correlation necessary.
[2023-11-29 14:31] VITALS: BP 118/64; PULSE 84; RESP 16; TEMP 36.1; O2SAT 98
[2023-11-29] MEDS: Acetaminophen 325 MG TABLET 650 MG PO (14:32)
== END 2023-11-29 14:57 | disposition home or self-care (01) ==
PROVIDERS: PCP Internal Medicine; Visit Provider Internal Medicine Gastroenterology
PROC: 0DJD8ZZ Inspection of Lower Intestinal Tract, Via Natural or Artificial Opening Endoscopic (ICD-10-PCS; CPT 45378; principal; 2023-11-29 12:00)
DX: Z12.11 Encounter for screening for malignant neoplasm of colon (principal); K63.5 Polyp of colon; K62.1 Rectal polyp; K62.89 Other specified diseases of anus and rectum; K57.30 Diverticulosis of large intestine without perforation or abscess without bleeding; K64.8 Other hemorrhoids; E23.2 Diabetes insipidus; G40.209 Localization-related (focal) (partial) symptomatic epilepsy and epileptic syndromes with complex partial seizures, not intractable, without status epilepticus; Z79.899 Other long term (current) drug therapy; Z90.49 Acquired absence of other specified parts of digestive tract; Z98.890 Other specified postprocedural states
CPT/HCPCS: 45385; 45380; 88305; J2704

== ENCOUNTER → 2023-11-29 11:16 | Outpatient (BNV) | payer OTHER, SELFPAY | PROVIDERS: PCP Internal Medicine; Visit Provider Internal Medicine Gastroenterology | DX: K63.5 Polyp of colon (principal); K62.1 Rectal polyp | CPT/HCPCS: 45385 ==

== ENCOUNTER 2023-12-10 08:02 | Outpatient (AMB) | payer BC, SELFPAY ==
--- NOTE | 2023-12-10 08:08 | MHC.OFFVIS ---
Vital Signs 12/10/23 08:09 Height 5 ft 4 in Weight 190 lb BMI 32.6 BP 118/65 Blood Pressure Location Lt brachial Position Sitting Pulse 92 Intake Visit Reasons: s/p colon Intake Note: Dary presents in the office as a follow up follow up colonoscopy. CC: No concerns - just here today for results to her colonoscopy. 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 Denies any issues with anesthesia in the past.? Denies any history of sleep apnea.? No history infectious diseases in the past or present.? Not on any anticoagulation therapy.? No family or personal history of colon cancer or polyps.? Patient denies melena, hematochezia, unintentional weight loss or ribbon like stools.? Discussed at length the pre-procedure,? prep, diet & medications as well as what to expect prior, during and after the procedure.?? Stressed the importance of good bowel prep. ?Recommended the use of Vaseline or Calmoseptine OTC & baby wipes with bowel movements to promote comfort.? ?Patient verbalizes understanding and agrees to plan of care.? She was given the opportunity to ask questions and all questions answered.? We will see her after the procedure.? Medications New polyethylene glycol 3350 (Miralax) As directed by gastroenterology department at [facility] 238 grams PO ONCE 238 grams 0RF Z12.11 COLONOSCOPY Findings: Terminal Ileum: Not evaluated Cecum: Normal Ascending Colon: Normal Transverse Colon: A 4-5 mm diminutive appearing polyp - removed with a cold snare. Residual polyp was removed with the cold biopsy Descending Colon: Normal Sigmoid Colon: Moderate diverticulosis Rectum: A 4-5 mm sessile polyp - with a cold snare Circumferential inflammation in the distal 3-4 cms of the rectum with edema, erythema and ulcerations with exudate -multiple biopsies were obtained. Ano-rectum: Moderate internal hemorrhoids Colon preparation: Good after some irrigation. [place] Bowel Preparation Scale Right colon; 2 Transverse colon: 2 Left colon; 2 (0 = Unprepared colon segment with mucosa not seen due to solid stool that cannot be cleared. 1 = Portion of mucosa of the colon segment seen, but other areas of the colon segment not well seen due to staining, residual stool and/or opaque liquid. 2 = Minor amount of residual staining, small fragments of stool and/or opaque liquid, but mucosa of colon segment seen well. 3 = Entire mucosa of colon segment seen well with no residual staining, small fragments of stool or opaque liquid) Impression and Post Procedure Diagnosis: Colonoscopy Findings: Two small polyps were removed Circumferential inflammation in the distal 3-4 cms of the rectum with edema, erythema and ulcerations with exudate - ? ulcerative proctitis versus chlamydia infection. Moderate diverticulosis seen in the sigmoid colon Moderate hemorrhoids on retroflexed exam. Plan: Repeat Colonoscopy in 5 years if polyps are adenomatous and 10 year if polyps are hyperplastic. Above findings were reviewed with the patient and relevant handouts were given and the discharge area. (Pt denied any symptoms of proctitis like rectal pain or bleeding) BIOPSIES SHOWED: A. Colon, transverse, polyp: Colonic mucosa with prominent lymphoid aggregates; negative for adenomatous dysplasia. B. Colon, rectal polyp: Hyperplastic polyp. C. Colon, rectum, biopsy: Chronic colitis/proctitis with moderate activity; negative for dysplasia (see comment). D. Colon, sigmoid, biopsy: Colonic mucosa with no specific change; no colitis, granulomas or dysplasia. Comment: (C): The differential includes chronic inflammatory bowel disease, infection and drug-related causes; clinical correlation necessary. TODAY'S VISIT Patient is here today for follow-up and to discuss colonoscopy results. Patient denies any ill effects from the prep, anesthesia or procedure itself to benign polyps found hyperplastic without high-grade dysplasia or carcinoma. Recommendation was for 10 years. Patient denies any family history of CRC. Patient denies any rectal pain. Proctitis found without dysplasia patient denies any rectal bleed. Reports normal bowel movements. Patient denies any GI symptoms. [facility] Medical History Complex partial seizure disorder Diabetes insipidus Annual physical exam Left wrist injury Hx of gallstones Surgical History (Updated 12/10/23 @ 08:10 by NANCY Gallegos) Hx of colonoscopy History of cholecystectomy H/O breast augmentation H/O tubal ligation Family History Mother Diabetes Social History Housing: House Alcohol intake: never Patient Tobacco Use Status: Never used Tobacco e-Cigarette/Vaping Use: Never Used Second Hand Smoke Exposure: No service: No Current occupational status: employed Cognitive needs: No Hearing needs: No Vision needs: No Review of Systems Const Denies weight gain and Denies weight loss ENT Reports no additional complaints, Denies dysphagia and Denies odynophagia Card Reports no additional complaints Resp Reports no additional complaints GI Denies abdominal pain, Denies belching, Denies melena, Denies bloating, Denies change in bowel habits, Denies dysphagia, Denies excessive flatus, Denies dyspepsia, Denies heartburn, Denies diarrhea, Denies loose stools, Denies nausea, Denies odynophagia and Denies vomiting Musc Reports no additional complaints Neuro Reports no additional complaints Psych Reports no additional complaints Endo Reports no additional complaints Physical Exam Vital Signs: Last Vital Signs Pulse 92 12/10/23 08:09 BP 118/65 12/10/23 08:09 BMI result Body Mass Index 32.6 Const General: healthy appearing and no acute distress Nutritional Appearance: obese Orientation/consciousness: patient oriented x3 Resp Effort & Inspection: normal respiratory effort, able to speak in complete sentences, no tracheal deviation and symmetric chest movement Auscultation: clear to auscultation bilaterally Cardio Rate: regular rate GI Inspection: Yes normal to inspection, No distended and Yes obesity Palpation (GI): Soft to palpation, not firm, nontender and No hepatosplenomegaly present Auscultation: normal bowel sounds General: Yes no CVA tenderness Back/Spine/Pelvis Back: no CVA tenderness Skin General skin exam: elasticity normal, turgor normal and dry skin Neuro General: patient oriented x3 Psych Appearance: grossly normal Mental Status: mental status grossly normal Assessment & Plan Assessment & Plan (1) Status post colonoscopy: Code(s): Z98.890 - Other specified postprocedural states (2) Proctitis: Code(s): K62.89 - Other specified diseases of anus and rectum Plan 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 Patient denies any symptoms, however will send her script for mesalamine suppository to take for 3 weeks. Colonoscopy in 10 years sooner if clinically necessary. Patient denies any family history of CRC. Patient will return in the office in 2 months to re-evaluate. She will call if she will have any GI concerning symptoms. Patient is agreeable to this plan and verbalizes understanding of instructions. She was given the opportunity to ask questions and all questions answered. Thank you for allowing me to participate in her care Medications: New mesalamine 1 g IN BEDTIME 30 ea 0RF 3 weeks Coding Level of Care Code Est Pt Level 3 (14770) Diagnoses Status post colonoscopy Z98.890 Proctitis K62.89 Time Spent (min) 30 Comment 20 minutes spent with patient and additional 10 minutes spent records
[2023-12-10 08:09] VITALS: BP 118/65; PULSE 92; BMI 32.6
== END 2023-12-10 08:38 | disposition home or self-care (01) ==
PROVIDERS: PCP Internal Medicine; Visit Provider Nurse Practitioner Family
DX: Z98.890 Other specified postprocedural states (principal); K62.89 Other specified diseases of anus and rectum
CPT/HCPCS: 99213

== ENCOUNTER → 2023-12-10 08:02 | Outpatient (BNVA) | payer BC, SELFPAY | PROVIDERS: PCP Internal Medicine; Visit Provider Nurse Practitioner Family ==